=== PATIENT | male | born 1995 ===

== ENCOUNTER 2018-06-24 19:30 | Emergency (ER) | payer SELFPAY ==
[2018-06-24 19:38] VITALS: BP 148/83; PULSE 104; RESP 20; TEMP 98.4; O2SAT 98
--- NOTE | 2018-06-24 20:39 | C.PDOC ---
History Of Present Illness 22 year old male presents to the ED c/o left facial swelling for the past 5 -6 months. Patient reports he has not gone to see a Doctor and does not have a PMD to follow up with on a regular basis. Patient denies fever, chills, rash, injury, fall, trauma. Time Seen by Provider: 06/24/18 19:55 Chief Complaint (Nursing): Abnormal Skin Integrity History Per: Patient History/Exam Limitations: no limitations Onset/Duration Of Symptoms: Days Current Symptoms Are (Timing): Still Present Location Of Injury: Left: Face Quality Of Symptoms: Swollen Recent travel outside of the [place]: No Additional History Per: Patient Past Medical History Reviewed: Historical Data, Nursing Documentation, Vital Signs Vital Signs: Last Vital Signs Temp 98.4 F 06/24/18 19:35 Pulse 104 H 06/24/18 19:35 Resp 20 06/24/18 19:35 BP 148/83 06/24/18 19:35 Pulse Ox 98 06/24/18 19:35 - Medical History PMH: No Chronic Diseases Surgical History: No Surg Hx Family History: States: Unknown Family Hx - Social History Hx Alcohol Use: No Hx Substance Use: No - Immunization History Hx Tetanus Toxoid Vaccination: No Hx Influenza Vaccination: No Hx Pneumococcal Vaccination: No Review Of Systems Constitutional: Negative for: Fever, Chills ENT: Positive for: Other (facial swelling). Negative for: Throat Pain Respiratory: Negative for: Cough, Shortness of Breath Gastrointestinal: Negative for: Nausea, Vomiting, Abdominal Pain Skin: Negative for: Rash Neurological: Negative for: Weakness, Numbness, Headache, Dizziness Physical Exam - Physical Exam Appears: Non-toxic, No Acute Distress Skin: Normal Color, Warm, Dry Head: Atraumatic, Normacephalic, Swelling (left cheek sebaceous cyst, no signs of infection, erythema, tenderness, drainage) Eye(s): bilateral: Normal Inspection, PERRL, EOMI Ear(s): Bilateral: Normal Oral Mucosa: Moist Tongue: No Swelling Lips: No Swelling Neck: Normal ROM, Supple Neurological/Psych: Oriented x3, Normal Speech, Normal Cognition Gait: Steady ED Course And Treatment O2 Sat by Pulse Oximetry: 98 (ON RA) Pulse Ox Interpretation: Normal Progress Note: Plan: - Keflex 500 mg PO. Patient was given antibiotics and the first dose in the ED. Patient was given information about neighborhood clinic and advised to follow up there for further evaluation. Disposition - Disposition Referrals: [facility] [Outside] Disposition: HOME/ ROUTINE Disposition Time: 20:37 Condition: STABLE Additional Instructions: Follow up in Clinic to see brand specialist. Return to ED if feel worse. 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 - Scribe Statement The provider has reviewed the documentation as recorded by the Scribe Antony Collins All medical record entries made by the Scribe were at my direction and personally dictated by me. I have reviewed the chart and agree that the record accurately reflects my personal performance of the history, physical exam, medical decision making, and the department course for this patient. I have also personally directed, reviewed, and agree with the discharge instructions and disposition.
== END 2018-06-24 20:48 | disposition home or self-care (01) ==
LOC: C.ER 19:30
DX: L72.0 Epidermal cyst (principal)